=== PATIENT | male | born 1980 | race Caucasian/White ===

== ENCOUNTER 2017-10-18 20:23 | Emergency (ER) | payer OTHER ==
[2017-10-18 20:49] VITALS: BP 155/111
[2017-10-18] MEDS ORDERED: Prochlorperazine 10 MG/2 ML SDV IVPUSH ONE (20:58)
[2017-10-18] MEDS ORDERED: Ketorolac 30 MG/ML SDV IVPUSH ONE (20:58)
[2017-10-18] MEDS ORDERED: diphenhydrAMINE 50 MG/ML SDV IVPUSH ONE (20:59)
--- NOTE | 2017-10-18 20:59 | EDM.PDOC ---
ED HPI GENERAL MEDICAL PROBLEM - General Chief Complaint: Headache Stated Complaint: headache Time Seen by Provider: 10/18/17 20:59 Source of Information: Reports: Patient History Limitations: Reports: No Limitations - History of Present Illness INITIAL COMMENTS - FREE TEXT/NARRATIVE: pt has a severe frontal headache. He is nauseated but has not been vomiting. The haeadache is frontal and is quite typical of his migraine headaches. Onset: Other ( started some last nte, It has been severe and he is very lite sensitive. ) Duration: Hour(s): Location: Reports: Head Associated Symptoms: Reports: No Other Symptoms, Nausea/Vomiting mirgraine Pain Score (Numeric/FACES): 6 - Related Data Allergies Allergy/AdvReac Type Severity Reaction Status Date / Time No Known Allergies Allergy Verified 10/18/17 20:48 Home Meds: Home Meds traMADol [Ultram] 100 mg PO BID 12/24/13 [History] Past Medical History Neurological History: Reports: Concussion, Migraines Psychiatric History: Reports: Depression, PTSD, Suicide Attempt - Infectious Disease History Infectious Disease History: Reports: Chicken Pox - Past Surgical History HEENT Surgical History: Reports: Oral Surgery Musculoskeletal Surgical History: Reports: Arthroscopic Knee, Other (See Below) Other Musculoskeletal Surgeries/Procedures:: right torn meniscus and cartilage Social & Family History - Tobacco Use Smoking Status *Q: Never Smoker - Caffeine Use Caffeine Use: Reports: Coffee, Soda - Recreational Drug Use Recreational Drug Use: Yes Drug Use in Last 12 Months: Yes Recreational Drug Type: Reports: Marijuana/Hashish Recreational Drug Use Frequency: Weekly ED ROS GENERAL - Review of Systems Review Of Systems: See Below Constitutional: Reports: No Symptoms HEENT: Reports: No Symptoms Respiratory: Reports: No Symptoms Cardiovascular: Reports: No Symptoms Endocrine: Reports: No Symptoms GI/Abdominal: Reports: Nausea : Reports: No Symptoms Musculoskeletal: Reports: No Symptoms Skin: Reports: No Symptoms Neurological: Reports: Headache Psychiatric: Reports: No Symptoms - Physical Exam Exam: See Below Text/Narrative:: Pt arrived with a severe frontal headache which is very severe. He is nauseated but he is not vomiting. He is very lite sensitive. Exam Limited By: No Limitations General Appearance: Alert, Moderate Distress Ears: Normal TMs Nose: Normal Inspection Throat/Mouth: Normal Inspection Head Exam: Atraumatic Neck: Normal Inspection Respiratory/Chest: No Respiratory Distress Cardiovascular: Regular Rate, Rhythm GI/Abdominal: Soft, Non-Tender Rectal (Males) Exam: Deferred Neuro Exam (Abbreviated): Alert, Oriented, Normal Cognition Course - Vital Signs Last Recorded V/S: Last Vital Signs Temp 36.3 C 10/18/17 20:55 Pulse 98 10/18/17 20:55 Resp 16 10/18/17 20:55 BP 155/111 H 10/18/17 20:55 Pulse Ox 94 L 10/18/17 20:55 - Orders/Labs/Meds Meds: Medications Discontinued Medications Generic Name Dose Route Start Last Admin Trade Name Freq PRN Reason Stop Dose Admin Diphenhydramine HCl 25 mg 10/18/17 20:59 10/18/17 21:12 Benadryl IVPUSH 10/18/17 21:00 25 mg ONETIME ONE Administration Hydromorphone HCl 0.5 mg 10/18/17 21:43 10/18/17 21:53 Dilaudid IVPUSH 10/18/17 21:44 0.5 mg ONETIME ONE Administration Sodium Chloride 1,000 mls @ 999 mls/hr 10/18/17 21:00 10/18/17 21:11 Normal Saline IV 999 mls/hr ASDIRECTED KAYDEN Administration Ketorolac Tromethamine 30 mg 10/18/17 20:58 10/18/17 21:12 Toradol IVPUSH 10/18/17 20:59 30 mg ONETIME ONE Administration Prochlorperazine Edisylate 10 mg 10/18/17 20:58 10/18/17 21:12 Compazine IVPUSH 10/18/17 20:59 10 mg ONETIME ONE Administration - Re-Assessments/Exams Free Text/Narrative Re-Assessment/Exam: 10/18/17 21:41 pt was given torodol 30mg iv, compazine 10mg 1v and benadryl 25 mg iv. His headache is down to about a 5 at this time. 10/18/17 22:04 Pt was given dilaudid .5 iv and he is down to a 3 and he thinks he could go home and rest now. Departure - Departure Time of Disposition: 22:05 Disposition: Home, Self-Care 01 Condition: Fair Clinical Impression: Migraine - Discharge Information Instructions: Migraine Headache, [id number] Referrals: Osbaldo Andrade MD [Primary Care Provider] - Forms: ED Department Discharge Care Plan Goals: low activity, push fluids.
[2017-10-18] MEDS ORDERED: Sodium Chloride 0.9% 1,000 ML IV SCH (21:00)
[2017-10-18] MEDS ORDERED: HYDROmorphone 0.5 MG/0.5 ML Syringe IVPUSH ONE (21:43)
== END 2017-10-18 22:16 | disposition home or self-care (01) ==
LOC: JP.ED 20:23
DX: G43.909 Migraine, unspecified, not intractable, without status migrainosus (principal)
CPT/HCPCS: 96361; 96374; 96375; 99284-25; J0780; J1170; J1200; J1885; J7030

== ENCOUNTER 2019-07-05 12:46 | Emergency (ER) | payer SELFPAY ==
[2019-07-05 13:20] VITALS: BP 177/107; PULSE 79
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
== END 2019-07-05 14:11 | disposition home or self-care (01) ==
LOC: JP.ED 12:46
DX: S16.1XXA Strain of muscle, fascia and tendon at neck level, initial encounter (principal); F32.9 Major depressive disorder, single episode, unspecified; Z79.899 Other long term (current) drug therapy; V49.40XA Driver injured in collision with unspecified motor vehicles in traffic accident, initial encounter; Y92.410 Unspecified street and highway as the place of occurrence of the external cause
CPT/HCPCS: 99283

== ENCOUNTER 2019-09-23 19:02 | Emergency (ER) | payer BC ==
[2019-09-23 19:25] VITALS: BP 158/99; PULSE 82
[2019-09-23] MEDS ORDERED: Lactated Ringers 1,000 ML IV ONE (19:28)
[2019-09-23] MEDS ORDERED: Prochlorperazine 10 MG/2 ML SDV IVPUSH ONE (19:29)
[2019-09-23] MEDS ORDERED: Ketorolac 30 MG/ML SDV IVPUSH ONE (19:29)
[2019-09-23] MEDS ORDERED: diphenhydrAMINE 50 MG/ML SDV IVPUSH ONE (19:29)
--- NOTE | 2019-09-23 19:33 | EDM.PDOC ---
ED HPI GENERAL MEDICAL PROBLEM - General Chief Complaint: Headache Stated Complaint: MIGRAINE Time Seen by Provider: 09/23/19 19:20 Source of Information: Reports: Patient, Old Records History Limitations: Reports: No Limitations - History of Present Illness INITIAL COMMENTS - FREE TEXT/NARRATIVE: 39 yo male with a pHx of migraine presents with the onset of another around 11 am today. Has some nausea, photo and phonophobia. No vomiting or fever. Is here with his who can drive. Feels just like prior migraines. Onset: Today Onset Date: 09/23/19 Onset Time: 11:00 Duration: Hour(s):, Constant Location: Reports: Head Quality: Reports: Ache Severity: Severe Improves with: Reports: None Worsens with: Reports: Other (lights, sounds) Context: Reports: Other (See HPI) Associated Symptoms: Reports: Headaches, Nausea/Vomiting (no vomiting). Denies : Confusion, Fever/Chills, Seizure, Syncope Treatments ELECTRICAL APPRENTICE: Reports: Other (see below) (none) - Related Data Allergies Allergy/AdvReac Type Severity Reaction Status Date / Time No Known Allergies Allergy Verified 09/23/19 19:18 Home Meds: Home Meds traMADol [Ultram] 100 mg PO BID 12/24/13 [History] Venlafaxine HCl [Venlafaxine ER] 150 mg PO DAILY 03/14/18 [History] Cyclobenzaprine [Flexeril] 5 - 10 mg PO TID PRN #14 tab 07/05/19 [Rx] Past Medical History Gastrointestinal History: Reports: Inflammatory Bowel Disease Neurological History: Reports: Concussion, Migraines Psychiatric History: Reports: Depression, PTSD, Suicide Attempt Dermatologic History: Reports: Other (See Below) Other Dermatologic History: rosacia - Infectious Disease History Infectious Disease History: Reports: Chicken Pox - Past Surgical History HEENT Surgical History: Reports: Other (See Below) Other HEENT Surgeries/Procedures: wisdom teeth Musculoskeletal Surgical History: Reports: Arthroscopic Knee, Other (See Below) Other Musculoskeletal Surgeries/Procedures:: right torn meniscus and cartilage Social & Family History - Family History Family Medical History: Noncontributory - Tobacco Use Smoking Status *Q: Never Smoker - Caffeine Use Caffeine Use: Reports: Coffee, Soda Other Caffeine Use: 2 pops per day - Living Situation & Occupation Living situation: Reports: , with Family Occupation: Employed (lives with and two children ages 5 yrs and 10 yrs. in [place], [place].) ED ROS GENERAL - Review of Systems Review Of Systems: See Below Constitutional: Reports: No Symptoms HEENT: Reports: No Symptoms Respiratory: Reports: No Symptoms Cardiovascular: Reports: No Symptoms Endocrine: Reports: No Symptoms GI/Abdominal: Reports: Nausea. Denies: Vomiting : Reports: No Symptoms Musculoskeletal: Reports: No Symptoms Skin: Reports: No Symptoms Neurological: Reports: Headache Psychiatric: Reports: No Symptoms - Physical Exam Exam: See Below Exam Limited By: No Limitations General Appearance: Alert, WD/WN, No Apparent Distress Eye Exam: Bilateral Eye: Normal Inspection (light sensitive), PERRL Ears: Normal External Exam, Normal Canal, Hearing Grossly Normal, Normal TMs Nose: Normal Inspection, No Blood Throat/Mouth: Normal Inspection, Normal Lips, Normal Oropharynx, Normal Voice, No Airway Compromise Head Exam: Atraumatic, Normocephalic Neck: Normal Inspection Respiratory/Chest: No Respiratory Distress, Lungs Clear, Normal Breath Sounds, No Accessory Muscle Use Cardiovascular: Regular Rate, Rhythm, No Edema GI/Abdominal: Soft, Non-Tender, No Distention Neuro Exam (Abbreviated): Alert, Oriented, CN II-XII Intact, Normal Cognition, No Motor/Sensory Deficits Extremities: Normal Inspection, Normal Range of Motion, Non-Tender, No Pedal Edema Psychiatric: Normal Affect, Normal Mood Skin Exam: Warm, Dry, Intact, Normal Color, No Rash Course - Vital Signs Last Recorded V/S: Last Vital Signs Temp 36.1 C 09/23/19 19:23 Pulse 82 09/23/19 19:23 Resp 14 09/23/19 19:23 BP 158/99 H 09/23/19 19:23 Pulse Ox 98 09/23/19 19:23 - Orders/Labs/Meds Meds: Medications Discontinued Medications Generic Name Dose Route Start Last Admin Trade Name Freq PRN Reason Stop Dose Admin Diphenhydramine HCl 25 mg 09/23/19 19:29 09/23/19 19:46 Benadryl IVPUSH 09/23/19 19:30 25 mg ONETIME ONE Administration Lactated Ringer's 1,000 mls @ 1,000 mls/hr 09/23/19 19:28 09/23/19 19:47 Ringers, Lactated IV 09/23/19 20:27 1,000 mls/hr BOLUS ONE Administration Ketorolac Tromethamine 30 mg 09/23/19 19:29 09/23/19 19:46 Toradol IVPUSH 09/23/19 19:30 30 mg ONETIME ONE Administration Prochlorperazine Edisylate 10 mg 09/23/19 19:29 09/23/19 19:46 Compazine IVPUSH 09/23/19 19:30 10 mg ONETIME ONE Administration - Re-Assessments/Exams Free Text/Narrative Re-Assessment/Exam: 09/23/19 20:49 Sleeping soundly after treatment. Departure - Departure Time of Disposition: 20:55 Disposition: Home, Self-Care 01 Condition: Fair Clinical Impression: Migraine Qualifiers: Migraine type: without aura Status migrainosus presence: without status migrainosus Intractability: not intractable Qualified Code(s): G43.009 - Migraine without aura, not intractable, without status migrainosus - Discharge Information *PRESCRIPTION DRUG MONITORING PROGRAM REVIEWED*: No *COPY OF PRESCRIPTION DRUG MONITORING REPORT IN PATIENT JAZMIN: No Instructions: Migraine Headache, [id number] Referrals: Osbaldo Andrade MD [Primary Care Provider] - Forms: ED Department Discharge Additional Instructions: No driving tonight. Home to sleep. Continue your usual meds. Consider trying Excedrin Migraine at the first sign of a headache. Take magnesium 500 mg every day to reduce the frequency of your migraines. See your provider for recheck as needed. Sepsis Event Note - Evaluation Sepsis Screening Result: No Definite Risk - Focused Exam Vital Signs: Vital Signs Temp Pulse Resp BP Pulse Ox 09/23/19 19:23 36.1 C 82 14 158/99 H 98 Date Exam was Performed: 09/23/19 Time Exam was Performed: 20:49
== END 2019-09-23 21:11 | disposition home or self-care (01) ==
LOC: JP.ED 19:02
DX: G43.009 Migraine without aura, not intractable, without status migrainosus (principal); F32.9 Major depressive disorder, single episode, unspecified; Z79.899 Other long term (current) drug therapy
CPT/HCPCS: 96374; 96375; 99283; J0780; J1200; J1885; J7120

== ENCOUNTER 2019-11-21 10:30 | Emergency (ER) | payer BC ==
[2019-11-21 10:54] VITALS: BP 146/104; PULSE 88
[2019-11-21] MEDS ORDERED: Ketorolac 60 MG/2 ML SDV IM ONE (11:35)
[2019-11-21] MEDS ORDERED: diphenhydrAMINE 25 MG Cap PO ONE (11:35)
[2019-11-21] MEDS ORDERED: Prochlorperazine 10 MG Tab PO ONE (11:36)
--- NOTE | 2019-11-21 11:43 | EDM.PDOC ---
<Enedelia Muhammad - Last Filed: 11/21/19 12:34> ED HPI GENERAL MEDICAL PROBLEM - General Chief Complaint: Headache Stated Complaint: migraine Time Seen by Provider: 11/21/19 11:37 Source of Information: Reports: Patient, RN History Limitations: Reports: No Limitations - History of Present Illness INITIAL COMMENTS - FREE TEXT/NARRATIVE: patient awoke this am around 4 to 4:30 am with a migraine headache. rates 5/10 and throbbing in the frontal lobe. Pt states he gets these migraines every few months. Has photophobia and sounds are bothering her also. This feels like his other migraines. He was dropped off by his . denies any recent head injuries. Onset: Today Onset Date: 11/21/19 Onset Time: 04:00 Location: Reports: Head Quality: Reports: Pressure Improves with: Reports: Immobilization, Other (dark and quiet environment) Associated Symptoms: Reports: No Other Symptoms Headache Pain Score (Numeric/FACES): 7 - Related Data Allergies Allergy/AdvReac Type Severity Reaction Status Date / Time No Known Allergies Allergy Verified 11/21/19 10:47 Home Meds: Home Meds traMADol [Ultram] 100 mg PO BID 12/24/13 [History] Venlafaxine HCl [Venlafaxine ER] 150 mg PO BEDTIME 03/14/18 [History] Cyclobenzaprine [Flexeril] 5 - 10 mg PO TID PRN #14 tab 07/05/19 [Rx] Past Medical History HEENT History: Reports: None Gastrointestinal History: Reports: Inflammatory Bowel Disease Musculoskeletal History: Reports: None Neurological History: Reports: Concussion, Migraines Psychiatric History: Reports: Depression, PTSD, Suicide Attempt Dermatologic History: Reports: Other (See Below) Other Dermatologic History: rosacia - Infectious Disease History Infectious Disease History: Reports: Chicken Pox - Past Surgical History HEENT Surgical History: Reports: Other (See Below) Other HEENT Surgeries/Procedures: wisdom teeth GI Surgical History: Reports: None Neurological Surgical History: Reports: None Musculoskeletal Surgical History: Reports: Arthroscopic Knee, Other (See Below) Other Musculoskeletal Surgeries/Procedures:: right torn meniscus and cartilage Social & Family History - Family History Family Medical History: Noncontributory - Tobacco Use Smoking Status *Q: Never Smoker - Caffeine Use Caffeine Use: Reports: Soda Other Caffeine Use: 2 pops per day - Recreational Drug Use Recreational Drug Use: Yes Drug Use in Last 12 Months: Yes Recreational Drug Type: Reports: Marijuana/Hashish Recreational Drug Use Frequency: Rarely - Living Situation & Occupation Living situation: Reports: , with Family Occupation: Employed (lives with and two children ages 5 yrs and 10 yrs. in [place], [place].) ED ROS GENERAL - Review of Systems Review Of Systems: See Below Constitutional: Reports: No Symptoms HEENT: Reports: Other (photophobia) Respiratory: Reports: No Symptoms Cardiovascular: Reports: No Symptoms Endocrine: Reports: No Symptoms GI/Abdominal: Reports: No Symptoms : Reports: No Symptoms Musculoskeletal: Reports: No Symptoms Skin: Reports: No Symptoms Neurological: Reports: No Symptoms Psychiatric: Reports: No Symptoms Hematologic/Lymphatic: Reports: No Symptoms Immunologic: Reports: No Symptoms - Physical Exam Exam Limited By: No Limitations General Appearance: Alert, No Apparent Distress Respiratory/Chest: No Respiratory Distress, Lungs Clear, Normal Breath Sounds Cardiovascular: Regular Rate, Rhythm, No Murmur GI/Abdominal: Soft Neuro Exam (Abbreviated): Alert, Oriented, Normal Cognition Psychiatric: Normal Affect, Normal Mood Skin Exam: Warm, Dry, Intact Course - Re-Assessments/Exams Free Text/Narrative Re-Assessment/Exam: 11/21/19 12:34 patient states good improvement. asking to go home so he can eat and go to [employer]. Departure - Departure Time of Disposition: 12:35 Disposition: Home, Self-Care 01 Condition: Good Clinical Impression: Migraine - Discharge Information *PRESCRIPTION DRUG MONITORING PROGRAM REVIEWED*: No *COPY OF PRESCRIPTION DRUG MONITORING REPORT IN PATIENT JAZMIN: No Instructions: Migraine Headache, [id number] Referrals: PCP,None [Primary Care Provider] - Forms: ED Department Discharge, ED Return to Work/School Form Additional Instructions: Low activity for the rest of today. advance activity as tolerated. Call or return to the ED with any worsening of symptoms. Sepsis Event Note (ED) - Evaluation Sepsis Screening Result: No Definite Risk - Assessment/Plan Plan: discharge to home. <Karen Guerrero - Last Filed: 11/22/19 07:22> ED ROS GENERAL - Review of Systems Review Of Systems: See Below - Physical Exam Exam: See Below Course - Vital Signs Last Recorded V/S: Last Vital Signs Temp 35.5 C L 11/21/19 10:44 Pulse 88 07/08/20 10:44 Resp 16 11/21/19 10:44 BP 146/104 H 11/21/19 10:44 Pulse Ox 100 11/21/19 10:44 - Orders/Labs/Meds Meds: Medications Discontinued Medications Generic Name Dose Route Start Last Admin Trade Name Chaunceyq PRN Reason Stop Dose Admin Diphenhydramine HCl 50 mg 11/21/19 11:35 11/21/19 11:48 Benadryl PO 11/21/19 11:36 50 mg ONETIME ONE Administration Ketorolac Tromethamine 60 mg 11/21/19 11:35 11/21/19 11:48 Toradol IM 11/21/19 11:36 60 mg ONETIME ONE Administration Prochlorperazine Maleate 10 mg 11/21/19 11:36 11/21/19 11:52 Compazine PO 11/21/19 11:37 10 mg ONETIME ONE Administration Departure - Departure Condition: Fair
== END 2019-11-21 12:35 | disposition home or self-care (01) ==
LOC: JP.ED 10:30
DX: G43.909 Migraine, unspecified, not intractable, without status migrainosus (principal); F32.9 Major depressive disorder, single episode, unspecified; Z79.899 Other long term (current) drug therapy
CPT/HCPCS: 96372; 99283; A9270; J1885; Q0164